=== PATIENT | male | born 1980 | race Caucasian/White ===

== ENCOUNTER 2021-12-03 22:55 | Emergency (ER) | payer OTHER ==
[~2021-12-03] VITALS: Ht 177.8 cm; Wt 108.9 kg
[2021-12-03] MEDS ORDERED: IBUPROFEN 600 MG TAB PO ONE (23:50)
[2021-12-03 23:53] VITALS: BP 116/85
[2021-12-04] MEDS ORDERED: IBUP-2213 PO (00:02)
[2021-12-04] MEDS ORDERED: FAMO-90 PO (00:02)
[2021-12-04 01:07] LABS: APPEARANCE,URINE CLEAR (CLEAR); BILIRUBIN,URINE NEGATIVE (NEGATIVE); BLOOD, URINE 3+ (NEGATIVE); COLOR,URINE YELLOW (YELLOW); LEUKOCYTE ESTERASE ,URINE NEGATIVE (NEGATIVE); NITRITE, URINE NEGATIVE (NEGATIVE); UGLUCOSE NEGATIVE (NEGATIVE)
[2021-12-04 01:10] LABS: RBC,URINE 0-5 /HPF (0-5); WBC,URINE 0-5 /HPF (0-5)
[2021-12-04 01:54] VITALS: BP 116/85
--- NOTE | 2021-12-04 01:54 | NUR ---
Patient discharged with v/s stable. Written and verbal after care instructions given and explained. Patient alert, oriented and verbalized understanding of instructions. Ambulatory with steady gait. All questions addressed prior to discharge. ID band removed. Patient advised to follow up with PMD. Rx of PEPCID AND IBUPROFEN given. Patient educated on indication of medication including possible reaction and side effects. Opportunity to ask questions provided and answered.
== END 2021-12-04 01:54 | disposition home or self-care (01) ==
LOC: MED 22:55
DX: U07.1 COVID-19 (principal); M54.6 Pain in thoracic spine; Z79.899 Other long term (current) drug therapy
CPT/HCPCS: 71045; 81001; 93005; 99284

== ENCOUNTER 2022-03-07 20:09 | Emergency (ER) | payer OTHER ==
[~2022-03-07] VITALS: Ht 177.8 cm; Wt 108.9 kg
[~2022-03-07 20:09] MED LIST: FAMO-90 PO; IBUP-2213 PO
[2022-03-07 20:43] VITALS: BP 142/84
--- NOTE | 2022-03-07 21:01 | NUR ---
PT TAKEN TO ER BED 08
[2022-03-07 21:16] LABS: APPEARANCE,URINE CLEAR (CLEAR); BILIRUBIN,URINE NEGATIVE (NEGATIVE); BLOOD, URINE 2+ (NEGATIVE); COLOR,URINE YELLOW (YELLOW); LEUKOCYTE ESTERASE ,URINE NEGATIVE (NEGATIVE); NITRITE, URINE NEGATIVE (NEGATIVE); UGLUCOSE NEGATIVE (NEGATIVE)
--- NOTE | 2022-03-07 21:22 | NUR ---
dr hampton at bedside examining pt
[2022-03-07 21:32] LABS: WBC,URINE NONE SEEN /HPF (0-5)
--- NOTE | 2022-03-07 21:45 | NUR ---
PT IS REFUSING CT
--- NOTE | 2022-03-07 22:00 | NUR ---
41 Y/O MALE BIBS, C/O "UTI SYMPTOMS" [id number]. PATIENT PRESENTS TO ED WITH PAIN. PT STATES HE HAS PAIN AND BURNING WHEN URINATING. DENIES N/V/D; SKIN IS PINK/WARM/DRY; AAOX4 WITH EVEN AND STEADY GAIT; LUNGS CLEAR BL; HR EVEN AND REGULAR; PT DENIES ANY FEVER, CP, SOB, OR COUGH AT THIS TIME; PATIENT STATES PAIN OF 4/10 AT THIS TIME; VSS; PATIENT POSITIONED FOR COMFORT; HOB ELEVATED; BEDRAILS UP X2; BED DOWN. ER MD MADE AWARE OF PT STATUS. PMHx: DENIES Sx: DENIES
[2022-03-07] MEDS ORDERED: TAMS0.4C96 PO (22:13)
--- NOTE | 2022-03-07 22:16 | NUR ---
PT WALKED OUT PRIOR TO SIGNING AMA FOR REFUSAL OF CT. SIGNED DC PAPERWORK AND DC INSTRUCTIONS WERE EXPLAINED TO HIS . MADE AWARE.
[2022-03-07 22:18] VITALS: BP 142/84
--- NOTE | 2022-03-07 22:18 | NUR ---
Patient discharged with v/s stable. Written and verbal after care instructions given and explained. Patient alert, oriented and verbalized understanding of instructions. Ambulatory with steady gait. All questions addressed prior to discharge. ID band removed. Patient advised to follow up with PMD. Rx of Tamsulosin given. Patient educated on indication of medication including possible reaction and side effects. Opportunity to ask questions provided and answered. VSS, A/OX4, AMBULATORY, UNLABORED BREATHING, AND CALM DEMEANOR.
== END 2022-03-07 22:18 | disposition home or self-care (01) ==
LOC: MED 20:09
DX: N20.0 Calculus of kidney (principal); Z79.899 Other long term (current) drug therapy
CPT/HCPCS: 81001; 99283

== ENCOUNTER → 2024-09-15 | Emergency (ER) | payer BC, OTHER ==
[~2024-09-15] VITALS: Ht 177.8 cm; Wt 102.1 kg
[~2024-09-15] MED LIST changes: +METF-346 PO; +TAMS0.4C96 PO
[2024-09-15 19:15] VITALS: BP 132/91; PULSE 108; RESP 18; TEMP 98; O2SAT 99
[2024-09-15] MEDS: NACL 0.9% 1,000 ML IV ONE (20:06)
[2024-09-15 20:14] VITALS: O2SAT 99
[2024-09-15 20:18] LABS: BASOPHILS % (AUTO) 0.5 % (0.0-2.0); EOSINOPHILS # (AUTO) 0.2 K/uL (0-0.4); EOSINOPHILS % (AUTO) 2.2 % (0.0-4.0); HEMATOCRIT 48.9 % (36-52); HEMOGLOBIN 16.3 g/dL (12.0-18.0); LYMPHOCYTES # (AUTO) 2.7 K/uL (2.0-11.5); LYMPHOCYTES % (AUTO) 26.7 % (20.5-51.1); MEAN CORPUSCULAR HEMOGLOBIN 27 pg (27-31); MEAN CORPUSCULAR HGB CONC 33 g/dL (33-37); MEAN CORPUSCULAR VOLUME 82.5 fL (80-94); MONOCYTES # (AUTO) 0.8 K/uL (0.8-1.0); MONOCYTES % (AUTO) 7.8 % (1.7-9.3); NEUTROPHILS # (AUTO) 6.4 K/uL (1.8-7.7); NEUTROPHILS % (AUTO) 62.8 % (42.2-75.2); PLATELET COUNT (AUTO) 296 K/uL (140-450); RED BLOOD CELL COUNT(AUTO) 5.93 MIL/uL (4.20-6.10); RED CELL DISTRIBUTION WIDTH 12.9 % (11.6-13.7); WHITE BLOOD COUNT (AUTO) 10.2 K/uL (4.8-10.8)
[2024-09-15 20:25] LABS: ANION GAP 12.4 (8-16); CALCIUM 10.2 mg/dL (8.5-10.1); CARBON DIOXIDE 32.6 mmol/L (21-32); CREATININE 1.3 mg/dL (0.6-1.3)
[2024-09-15] MEDS: INSULIN REGULAR, HUMAN 100 UNIT/ML VIAL IVP ONE (20:37)
[2024-09-15 21:14] VITALS: BP 122/83; PULSE 95; RESP 18; TEMP 97.9; O2SAT 99
== END | disposition home or self-care (01) ==
LOC: MED 19:07
DX: E11.9 Type 2 diabetes mellitus without complications (principal); Z79.899 Other long term (current) drug therapy
CPT/HCPCS: 36415; 80048; 82948; 83036; 85025; 93005; 96361; 96374; 99284; J1815; J7030